=== PATIENT | male | born 1975 | race Caucasian/White ===

== ENCOUNTER → 2020-06-14 15:37 | Outpatient (CLI) | payer OTHER, SELFPAY ==
--- NOTE | 2020-06-14 15:42 | DI.RAD.S_ITS ---
PROCEDURE: XR HAND LT MIN 3V INDICATIONS: l hand pain TECHNIQUE: 3 views of the hand(s) acquired. COMPARISON: None. FINDINGS: Bones: There is a mildly displaced fracture at the base of the 1st metacarpal. There is extension to the articular surface. Soft tissues: No suspicious soft tissue calcifications. IMPRESSION: Mildly displaced intra-articular 1st metacarpal base fracture. Dictated by: Kimberlee Tubbs M.D. on 06/14/2020 at 16:09 Approved by: Kimberlee Tubbs M.D. on 06/14/2020 at 16:09
== END ==
PROVIDERS: Referring Provider Physician Assistant; Visit Provider Physician Assistant
DX: S62.232A Other displaced fracture of base of first metacarpal bone, left hand, initial encounter for closed fracture (principal)
CPT/HCPCS: 73130

== ENCOUNTER → 2021-08-04 10:23 | Outpatient (CLI) | payer OTHER, SELFPAY ==
--- NOTE | 2021-08-04 10:25 | DI.RAD.S_ITS ---
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 COMPARISON: None. FINDINGS: Surgical changes and devices: None. Lungs and pleura: Lungs are clear. No pleural effusions or pneumothorax. Mediastinum: Mediastinal contours are normal. Heart size is normal. Bones and chest wall: No suspicious bony abnormalities. Soft tissues appear unremarkable. IMPRESSION: No acute cardiopulmonary findings. Dictated by: Yuko Trinh M.D. on 08/04/2021 at 11:49 Approved by: Yuko Trinh M.D. on 08/04/2021 at 11:49
== END ==
PROVIDERS: PCP Family Medicine; Referring Provider Family Medicine; Visit Provider Family Medicine
DX: Z57.8 Occupational exposure to other risk factors (principal); E78.00 Pure hypercholesterolemia, unspecified; F51.01 Primary insomnia; Z12.11 Encounter for screening for malignant neoplasm of colon
CPT/HCPCS: 71046

== ENCOUNTER → 2021-08-25 07:12 | Outpatient (CLI) | payer OTHER, SELFPAY ==
--- NOTE | 2021-08-25 07:13 | DI.NM.S_ITS ---
PROCEDURE: NM EXERCISE TREADMILL NON NUC COMPARISON: None. INDICATIONS: Exertional dyspnea FINDINGS: Rest ECG sinus rhythm. Fabiano protocol 17:02, maximum heart rate 180 bpm (102% peak predicted), maximum blood pressure 144/90, 16.9 METS, CHRISTY -42%. Stress ECG sinus tachycardia, no ST segment changes or arrhythmias. No exercise-induced chest pain. IMPRESSION: No evidence of exercise-induced ischemia or arrhythmia on ECG. Normal blood pressure response to exercise. Excellent exercise capacity. Dictated by: Ariadna Serrano D.O. on 08/25/2021 at 16:52 Approved by: Ariadna Serrano D.O. on 08/25/2021 at 17:00
--- NOTE | 2021-08-25 08:46 | PM.TREADMILL ---
Cardiac Stress Test Report Referral & Results Date Patient Seen: 08/25/21 Time Patient Seen: 08:15 Requesting provider: Yefri Caldera Indication: Dyspnea Rest ECG: NSR Procedure Note: Today, following both written and verbal informed consent, the patient was exercised according to a standard Fabiano protocol. The patient exercised for a total of 17 minutes 2 seconds achieving a maximum heart rate of 180. Patient's maximum systolic blood pressure was 144. This was an estimated 16.9 METs. Normal hemodynamic response to exercise. Rapid recovery. No EKG changes. Extraordinary exercise capacity (new [facility] record for longest test on Fabiano protocol). No signs or symptoms of angina. Presenting symptom of shortness of breath reproduced only in the last 30 seconds of very intense exercise. Impression: Low probability for ischemia. Presenting symptom of shortness or breath is highly unlikely to be cardiac. Verdin treadmill score of 17 is correlated with 97% 5 year survival rate from cardiac causes of mortality. Please note: Actual ECG tracings can be found in the PACS system.
[2021-08-25 09:11] LABS: Appearance Urine UA CLEAR; Bilirubin Urine UA NEGATIVE (NEGATIVE); Color Urine UA YELLOW; Glucose Urine UA NEGATIVE (Negative); Ketones Urine UA 1+ (NEGATIVE); Leukocyte Esterase Urine UA TRACE (NEGATIVE); Nitrite Urine UA NEGATIVE (Negative); Occult Blood Urine UA NEGATIVE (Negative); Protein Urine UA 1+ (Negative); Specific Gravity Urine UA 1.015 (1.000-1.035); Urobilinogen Urine UA 0.2 E.U./dL (0.2)
[2021-08-25 09:12] LABS: Add Manual Diff / Slide Review NO; Basophils Absolute Auto 0 /uL (0-100); Basophils Percent Auto 0.5 % (0-2); Eosinophils Absolute Auto 200 /uL (0-450); Hematocrit 44.2 % (41-53); Hemoglobin 14.6 g/dL (13.5-17.5); Lymphocytes Absolute Auto 4200 /uL (1100-4500); Lymphocytes Percent Auto 55.9 % (25-40); Mean Corpuscular Hemoglobin 27.8 PG (26-34); Mean Corpuscular Volume 84.3 fL (80-100); Monocytes Absolute Auto 700 /uL (0-900); Monocytes Percent Auto 8.8 % (3-14); Neutrophils Absolute Auto 2400 /uL (1500-7000); Neutrophils Percent Auto 31.8 % (50-75); Platelet Count 263 X10^3/uL (150-400); Red Blood Cell Count 5.24 X10^6/uL (4.5-5.9); Red Cell Distribution Width 13.7 % (11.6-14.8); White Blood Cell Count 7.4 X10^3/uL (4.5-11.0)
[2021-08-25 09:23] LABS: RBC Urine None Seen (0-5/HPF)
[2021-08-25 09:24] LABS: Bacteria Urine None Seen; Culture Indicated Urine Specimen Cultured; WBC Urine 1-5/HPF (0-5/HPF)
[2021-08-25 09:39] LABS: Albumin Globulin Ratio 1.9 (1.0-2.8); Alkaline Phosphatase 82 U/L (38-126); Aspartate Aminotransferase 43 IU/L (17-59); BUN Creatinine Ratio 13.3 (6-22); Bilirubin Total 1.1 mg/dL (0.2-1.3); Blood Urea Nitrogen 14 mg/dL (9-20); Calcium 9.4 mg/dL (8.4-10.2); Carbon Dioxide 14 mmol/L (22-32); Chloride 106 mmol/L (98-107); Cholesterol 219 mg/dL (140-199); Estimated Glomerular Filt Rate > 60 mL/min (>60); Globulin 2.6 g/dL (1.7-4.1); Glucose 116 mg/dL (70-100); HDL Cholesterol 77 mg/dL (40-60); HEMOLYSIS < 15 (0-50); LDL Cholesterol Calculated 127 mg/dL (<100); Potassium 4.4 mmol/L (3.4-5.1); Sodium 141 mmol/L (137-145); Total Protein 7.6 g/dL (6.3-8.2); Triglycerides 74 mg/dL (35-150)
[2021-08-25 09:46] LABS: Alanine Aminotransferase 45 IU/L (<50)
[2021-08-25 10:00] LABS: Prostate Specific Antigen Scrn 0.553 ng/mL (0.1-4.0)
[2021-08-25 10:43] LABS: COVID19 -Nasal RAPID Negative (Negative)
[2021-08-26 09:20] LABS: Hep C Virus Ab w/Reflex Quant NEGATIVE s/c (NEGATIVE)
== END ==
PROVIDERS: PCP Family Medicine; Referring Provider Family Medicine; Visit Provider Family Medicine
DX: R06.00 Dyspnea, unspecified (principal); E78.00 Pure hypercholesterolemia, unspecified; Z57.8 Occupational exposure to other risk factors; F51.01 Primary insomnia; Z12.11 Encounter for screening for malignant neoplasm of colon; Z12.5 Encounter for screening for malignant neoplasm of prostate; Z20.822 Contact with and (suspected) exposure to COVID-19
CPT/HCPCS: 36415; 80053; 80061; 81001; 85025; 86803; 87086; 87635; 93016; 93017; 93018; 94060; 94726; 94729; G0103

== ENCOUNTER → 2021-08-25 07:13 | Outpatient (CLI) | payer OTHER, SELFPAY ==
--- NOTE | 2021-08-30 08:15 | PM.PFT.1 ---
Pulmonary Function Test Referral & Results Date Patient Seen: 08/25/21 Requesting provider: Yefri Caldera Results: The spirometry demonstrates an FVC of 5.57 L which is 114% of predicted. The FEV1 was measured at 4.43 L which is 115% of predicted. The FEV1/FVC ratio was 79 which is 100% of predicted. Following the administration of bronchodilator there was no appreciable change to above normal numbers. Lung volumes show an SVC of 5.28 L which is 111% of predicted. The diffusing capacity was measured at 28.51 which is 96% of predicted. The maximum voluntary ventilation was normal Interpretation: This study demonstrates normal pulmonary function
== END ==
PROVIDERS: PCP Family Medicine; Referring Provider Family Medicine; Visit Provider Family Medicine
DX: Z12.11 Encounter for screening for malignant neoplasm of colon (principal); E78.00 Pure hypercholesterolemia, unspecified; F51.01 Primary insomnia; Z57.8 Occupational exposure to other risk factors
CPT/HCPCS: 94060; 94726; 94729

== ENCOUNTER 2022-05-10 09:35 | Day surgery (SDC) | payer OTHER, SELFPAY ==
[2022-05-10] MEDS: LACTATED RINGERS 1,000 ML 84 ML IV (09:48)
[2022-05-10 09:53] VITALS: BP 108/70; PULSE 63; RESP 16; TEMP 36.6; O2SAT 97; BMI 27.3
--- NOTE | 2022-05-10 10:44 | PM.HP.1 ---
History of Present Illness History of Present Illness Date Patient Seen: 05/10/22 Time Patient Seen: 10:44 Chief complaint: SDC Narrative: Franchesca is a 46-year-old man who is here for his first colonoscopy. No prior colonoscopies. No family history of colon cancer. Patient History Medical History (Updated 05/10/22 @ 10:46 by Zuhair Jeffrey MD) Tinnitus (~2000) Surgical History (Updated 08/20/21 @ 22:08 by Paulina Gimenez) Anesthesia Status post hernia repair (~1998) Family & Social History Social History: household members spouse Tobacco & Substance use: Smoking Status Never smoker alcohol intake current alcohol intake frequency a few times a week Meds Home Medications and Allergies Home Medications Medication Instructions Recorded Confirmed Type zolpidem 10 mg tablet (Ambien) 10 mg PO HSP #30 tabs 02/02/22 05/10/22 Rx Allergies Allergy/AdvReac Type Severity Reaction Status Date / Time No Known Drug Allergies Allergy Unverified 08/04/21 09:36 Exam Vital Signs (past 8 hours): - 05/10/22 09:53 Temperature 97.9 F Pulse Rate 63 Respiratory Rate 16 Blood Pressure 108/70 Pulse Oximetry 97 Oxygen Delivery Method Room Air Oxygen Delivery Method Room Air Const General: healthy appearing Assessment & Plan Assessment and plan (1) Colon cancer screening: Status: Acute Plan We reviewed the risks and benefits of colonoscopy and he would like to proceed
--- NOTE | 2022-05-10 11:40 | PM.OP.COLON ---
Operative Date/Time/Diagnoses Date of procedure: 05/10/22 Time of procedure: 11:40 Pre-op diagnosis: Colon cancer screening Post-op diagnosis: same Procedure & Clinicians Study performed: Colonoscopy Same procedure as scheduled: Yes Surgeon: Zuhair Jeffrey Procedure Notes Procedure in detail: Surgeon: Zuhair Jeffrey MD Anesthesia: Dr. Mcmillan Procedure: The patient was brought to the endoscopy suite, placed in left lateral decubitus position. The patient was connected to monitoring devices. A time-out was performed. Sedation was administered. Once the patient was adequately sedated, a digital rectal exam was performed and was normal. The scope was then inserted and advanced to the cecum where the appendiceal orifice was identified and photographed. The scope was then slowly withdrawn over greater than 6 minutes. The mucosa was thoroughly inspected. No polyps were found. The scope was retroflexed in the rectum. No abnormalities were seen. The scope was straightened and removed. The patient was awakened and brought to recovery. Scope withdrawal time: 8 minutes Sedation time: 14 minutes EBL: 0 Findings: Normal colon Post-procedure Recommendations: Colonoscopy in 10 years Disposition: PACU
[2022-05-10 11:42] VITALS: BP 110/72; PULSE 70; RESP 20; TEMP 36.3; O2SAT 97
[2022-05-10 11:49] VITALS: BP 100/68; PULSE 75; RESP 14; O2SAT 97
[2022-05-10 11:50] VITALS: BP 125/87; PULSE 65; RESP 18; O2SAT 97
== END 2022-05-10 12:06 | disposition home or self-care (01) ==
PROVIDERS: PCP Family Medicine; Referring Provider Surgery; Visit Provider Surgery
PROC: 0DJD8ZZ Inspection of Lower Intestinal Tract, Via Natural or Artificial Opening Endoscopic (ICD-10-PCS; CPT 45378; principal; 2022-05-10 10:45)
DX: Z12.11 Encounter for screening for malignant neoplasm of colon (principal)
CPT/HCPCS: 45378; 36415; J2704

== ENCOUNTER → 2023-09-12 08:03 | Outpatient (CLI) | payer OTHER, SELFPAY ==
--- NOTE | 2023-09-12 08:05 | DI.RAD.S_ITS ---
PROCEDURE: XR HAND LT MIN 3V INDICATIONS: 3nail gun punctured 3rd/4th digit at PIP TECHNIQUE: 3 views of the hand(s) acquired. COMPARISON: [facility], [place], XR HAND LT MIN 3V, 06/14/2020, 15:56. FINDINGS: Bones: No fractures or dislocations. Carpal bones are normally aligned. No suspicious bony lesions. Soft tissues: No suspicious soft tissue calcifications. No radiopaque foreign body IMPRESSION: No acute bony abnormality. Dictated by: Brian Chambers M.D. on 09/12/2023 at 8:48 Approved by: Brian Chambers M.D. on 09/12/2023 at 8:49
== END ==
PROVIDERS: PCP Family Medicine; Referring Provider Student in an Organized Health Care Education/Training Program; Visit Provider Student in an Organized Health Care Education/Training Program
DX: S61.239A Puncture wound without foreign body of unspecified finger without damage to nail, initial encounter (principal); S69.90XA Unspecified injury of unspecified wrist, hand and finger(s), initial encounter; W29.4XXA Contact with nail gun, initial encounter
CPT/HCPCS: 73130

== ENCOUNTER → 2024-02-03 07:10 | Outpatient (CLI) | payer OTHER, SELFPAY ==
[2024-02-03 07:58] LABS: Add Manual Diff / Slide Review NO; Basophils Absolute Auto 0 /uL (0-100); Basophils Percent Auto 0.4 % (0-2); Eosinophils Absolute Auto 300 /uL (0-450); Eosinophils Percent Auto 3.9 % (2-4); Hematocrit 43.1 % (41-53); Hemoglobin 14.3 g/dL (13.5-17.5); Lymphocytes Absolute Auto 1700 /uL (1100-4500); Lymphocytes Percent Auto 24.3 % (25-40); Mean Corpuscular HGB Conc 33.2 % (30-36); Mean Corpuscular Hemoglobin 27.2 PG (26-34); Mean Corpuscular Volume 82.1 fL (80-100); Monocytes Absolute Auto 600 /uL (0-900); Monocytes Percent Auto 7.8 % (3-14); Neutrophils Absolute Auto 4600 /uL (1500-7000); Neutrophils Percent Auto 63.6 % (50-75); Platelet Count 219 X10^3/uL (150-400); Red Blood Cell Count 5.24 X10^6/uL (4.5-5.9); Red Cell Distribution Width 13.3 % (11.6-14.8); White Blood Cell Count 7.2 X10^3/uL (4.5-11.0)
[2024-02-03 08:25] LABS: Alanine Aminotransferase 23 IU/L (<50); Albumin 4.2 g/dL (3.5-5.0); Albumin Globulin Ratio 1.8 (1.0-2.8); Alkaline Phosphatase 89 U/L (38-126); Aspartate Aminotransferase 28 IU/L (17-59); Bilirubin Total 0.7 mg/dL (0.2-1.3); Blood Urea Nitrogen 11 mg/dL (9-20); Calcium 9.3 mg/dL (8.4-10.2); Carbon Dioxide 26 mmol/L (22-32); Chloride 105 mmol/L (98-107); Cholesterol 227 mg/dL (140-199); Estimated Glomerular Filt Rate > 60 mL/min (>60); Globulin 2.4 g/dL (1.7-4.1); Glucose 91 mg/dL (70-100); HDL Cholesterol 57 mg/dL (40-60); HEMOLYSIS < 15 (0-50); LDL Cholesterol Calculated 143 mg/dL (<100); Potassium 4.5 mmol/L (3.4-5.1); Sodium 137 mmol/L (137-145); Total Protein 6.6 g/dL (6.3-8.2); Triglycerides 137 mg/dL (35-150)
[2024-02-03 08:52] LABS: Prostate Specific Antigen Scrn 0.725 ng/mL (0.1-4.0)
[2024-02-03 08:55] LABS: TSH w/ Reflex to FT4 1.91 uIU/mL (0.47-4.68)
[2024-02-04 03:08] LABS: Apolipoprotein B 97 mg/dL (<90)
== END ==
PROVIDERS: PCP Family Medicine; Referring Provider Family Medicine; Visit Provider Family Medicine
DX: Z12.5 Encounter for screening for malignant neoplasm of prostate (principal); E78.00 Pure hypercholesterolemia, unspecified; F51.01 Primary insomnia; R73.9 Hyperglycemia, unspecified
CPT/HCPCS: 36415; 80053; 80061; 82172; 83036; 84443; 85025; G0103